=== PATIENT | male | born 1945 | race Caucasian/White ===

== ENCOUNTER → 2017-03-02 | Outpatient (CLI) | payer OTHER ==
[~2017-03-02] MED LIST: IOPAMIDOL (ISOVUE-300) 100 ML BTL ONE
[2017-03-02 14:10] LABS: GLOMERULAR FILTRATION RATE > 60
== END ==
LOC: FIMAGING 13:07
PROVIDERS: ATTEND Family Medicine
DX: J84.9 Interstitial pulmonary disease, unspecified (principal)
CPT/HCPCS: 74160; Q9967

== ENCOUNTER 2017-04-24 12:32 | Emergency (ER) | payer OTHER ==
[2017-04-24 12:49] VITALS: TEMP 98.4
--- NOTE | 2017-04-24 13:36 | EDPHY ---
HPI/HX/ROS/PE/MDM Narrative: CHIEF COMPLAINT: Pain in lower back HPI: This patient is a 71 year old male complaining of pain in his anus radiating down his left leg to his knee worsening since onset 5-6 days ago, last Monday. He rates his discomfort at 8 or 9/10 severity. He was able to take a Vicodin, but this did not significantly reduce his pain, and it remained around 7/10 severity. The pain is constant, but improves slightly with walking. He endorses lower back pain. He denies increased pain with bowel movements. In the spring, he had a pain in his abdomen, localized to his left upper quadrant. Abdominal CT was normal at that time. His pain remained undiagnosed and gradually resolved over 6-8 weeks. His discomfort today is different from that episode. He denies other recent illness or trauma. REVIEW OF SYSTEMS: Aside from elements discussed in the HPI, a comprehensive 10-point review of systems was reviewed and is negative. PMH: CVA (Plavix), sepsis SOCIAL HISTORY: at bedside. Denies drug abuse. PHYSICAL EXAM: General:Patient is alert, in no acute distress. ENT:Eyes are normal to inspection. ENT inspection normal. Neck: Normal inspection. Full range of motion. Respiratory:No respiratory distress. Breath sounds normal bilaterally. Cardiovascular: Regular rate and rhythm. Strong peripheral pulses. Normal cap refill. Abdomen:The abdomen is nontender to palpation. There are no peritoneal signs. There are normal bowel sounds. Back: Normal to inspection. No tenderness to palpation. Skin: Normal color. No rash. Warm and dry. Extremities: Tenderness to inner thigh is present. Normal inspection. Chronic muscle wasting of all extremities noted. No leg swelling. Neuro: Oriented x3. Chronic bilateral weakness noted. Portions of this note were transcribed by an ED scribe. I personally performed the history, physical exam, and medical decision making; and confirm the accuracy of the information in the transcribed note. ED Course: 71 year old male presenting with sacral and lower back pain radiating down his left leg. Plan for Istat, imaging studies including sacrum/coccyx/pelvis x-ray, ultrasound of lower left extremity. Plan to administer Percocet PO for symptom relief. X-rays show no discernible fractures. US negative for DVT. 17:[address] Lewis, radiologist. CT shows lumbar stenosis, consider MRI for further evaluation. 19:[address] Lewis, radiologist. MRI shows multi-level lumbar and sacral stenosis. Offered admission for continued management. Patient declines. Plan to discharge home in good condition. Recommended follow up with neurosurgery for further evaluation of spinal stenosis and lumbar radiculopathy. MDM: This patient presents with the somewhat unusual complaint of pain in his lower back, perianal area and inner left thigh. His exam is made somewhat difficult by chronic changes related to prior stroke. We performed an extensive workup here in the ED. US is negative for DVT, abscess or other significant finding. Of note, patient's was very upset that we were not performing an ultrasound of his carotids "since the machine is right here." I explained that in the ED we focus on the active problem, and that pain in his back and leg is not suggestive of an acute stroke. CT of his abdomen and L/S spine is negative for sacral fracture or mass, but suggests severe disc disease and spinal stenosis. This is confirmed by MRI as well, with worsening towards the left on the lower levels, which is compatible with his symptoms. I see no signs of leg or back trauma, DVT, abscess, bowel issue or active infection. I offered the patient a medrol dose-maggie but he and his refuse this. I offered admission for pain control and further workup including NSG eval, but they refuse. I strongly recommended close follow-up with NSG and PCP as an outpatient. - Data Points Imaging Results: Imaging Impressions Extremity Venous Study 04/24/17 13:45 Impression: No evidence of deep vein thrombosis. Findings discussed with Tashi Campbell MD 04/24/2017 at 15:32. Pelvis X-Ray 04/24/17 13:45 Impression: Negative. No discernible fracture. Sacrum and Coccyx X-Ray 04/24/17 14:23 Impression: Negative. No discernible sacral fracture.. Abdomen CT 04/24/17 16:12 Impression: 1. Constipation. 2. Sigmoid diverticulosis, without diverticulitis or bowel obstruction. 3. Atherosclerotic aorta, without aneurysm. Findings and recommendations discussed with Emergency Department physician, Tashi Campbell M.D., at 1730 hours, on April 24, 2017. Final report concurs with initial preliminary interpretation. Lumbar Spine CT 04/24/17 16:13 Impression: 1. L5-S1: Severe bilateral neural foraminal stenosis secondary to spondylolytic grade 1 spondylolisthesis. 2. No evidence of sacral fracture, sacral insufficiency fracture, or destructive osseous lesion. 3. L1-L2: Severe central canal stenosis secondary to severe bilateral facet arthropathy, degenerative disk disease, and disk bulge. 4. Moderate central canal stenosis at L2-L3, L3-L4, and L4-L5 secondary to degenerative disk disease, with disk bulge and bilateral facet arthropathy, also resulting in mild to moderate bilateral neural foraminal stenosis. 5. Consider MRI lumbar spine for further evaluation. Findings and recommendations discussed with Emergency Department physician, Tashi Campbell M.D., at 1730 hours, on April 24, 2017. Final report concurs with initial preliminary interpretation. Lumbar Spine MRI 04/24/17 17:53 Impression: 1. L5-S1: Severe left neural foraminal stenosis and moderate to severe right neural foraminal stenosis secondary to spondylolytic grade 1 spondylolisthesis. 2. L1-L2: Severe central canal stenosis secondary to severe bilateral facet arthropathy, moderate degenerative disk disease, with circumferential disk bulge and osteophytes, asymmetrically more prominent towards the left, also resulting in severe left neural foraminal stenosis. 3. Moderate central canal stenosis at L2-L3 and L3-L4 secondary to moderate degenerative disk disease, with circumferential disk bulge and osteophytes, asymmetrically more prominent towards the left, and moderate bilateral facet arthropathy, also resulting in moderate to severe bilateral neural foraminal stenosis, worse on the right at L3-L4. 4. Please see above findings at specific disk levels. Findings and recommendations discussed with Emergency Department physician, Tashi Cambpell M.D., at 1950 hours, on April 24, 2017. Final report concurs with initial preliminary interpretation. E:GI/amm Imaging: Discussed imaging studies w/ call or contact centre operator Radiologist Laboratory Results: 04/24/17 16:31 POC Hgb 15.3 gm/dL gm/dL (13.7-17.5) POC Hct 45 % % (40-51) POC Sodium 140 mEq/L mEq/L (134-144) POC Potassium 4.2 mEq/L mEq/L (3.3-5.0) POC Chloride 103 mEq/L mEq/L (97-110) POC BUN 35 mg/dL H mg/dL (7-23) POC Creatinine 1.0 mg/dL mg/dL (0.7-1.3) POC Glucose 121 mg/dL H mg/dL (70-100) Medications Given: Discontinued Medications Oxycodone/Acetaminophen (Percocet 5/325) 1 tab PO EDNOW ONE Stop: 04/24/17 14:11 Last Admin: 04/24/17 14:37 Dose: 1 tab Oxycodone/Acetaminophen (Percocet 5/325) 1 tab PO EDNOW ONE Stop: 04/24/17 20:12 Last Admin: 04/24/17 20:19 Dose: 1 tab Oxycodone/Acetaminophen (Percocet 5/325mg Prepack#4) 1 btl TAKEHOME EDNOW ONE Stop: 04/24/17 20:12 Last Admin: 04/24/17 20:19 Dose: 1 btl Point of Care Test Results: 04/24/17 16:31 POC Sodium 140 POC Potassium 4.2 POC Chloride 103 POC BUN 35 H POC Creatinine 1.0 POC Glucose 121 H General Time Seen by Provider: 04/24/17 13:32 Initial Vital Signs: Initial Vital Signs Temperature (C) 36.9 C 04/24/17 12:40 Heart Rate 73 04/24/17 12:40 Respiratory Rate 18 04/24/17 12:40 Blood Pressure 135/78 H 04/24/17 12:40 O2 Sat (%) 95 04/24/17 12:40 O2 Delivery Mode Room Air Allergies/Adverse Reactions: aspirin Allergy (Intermediate, Verified 04/24/17 12:47) Hives Home Medications: Medication Instructions Recorded AZOPT 1% 06/08/10 LUMIGAN 0.03% 06/08/10 POTASSIUM CHLORIDE 06/08/10 HYDROCHLOROTHIAZIDE 08/17/10 LISINOPRIL 08/17/10 oxyCODONE/APAP 5/325 [Percocet 1 - 2 tab PO Q4H PRN #15 tab 04/24/17 5/325 (*)] Departure - Departure Disposition: Home, Routine, Self-Care Clinical Impression: Lumbosacral radiculopathy Condition: Good Instructions: Lumbar Radiculopathy (ED) Additional Instructions: Follow up with a azure principal solution specialist within one week. Return to the emergency department for severe pain, fever, numbness, difficulty walking, change in location or nature of pain or other concerns. Use ibuprofen and Tylenol as directed. Try using a heating pad. Referrals: PAVITHRA CONNORS [Primary Care Provider] - As per Instructions Ernestine Zaidi MD [Medical Doctor] - As per Instructions Prescriptions: oxyCODONE/APAP 5/325 [Percocet 5/325 (*)] 1 - 2 tab PO Q4H PRN #15 tab PRN Reason: Pain, Severe Report Scribed for: Tashi Campbell Report Scribed by: Brittany Crockett Date of Report: 04/24/17 Time of Report: 13:35
[2017-04-24] MEDS ORDERED: OXYCODONE/APAP 5/325 TAB PO ONE ×2 (14:10→20:11)
[2017-04-24] MEDS ORDERED: IOPAMIDOL (ISOVUE-300) 100 ML BTL ONE (17:03)
[2017-04-24] MEDS ORDERED: OXYCODONE/APAP 5/325MG PREPACK#4 BTL TAKEHOME ONE (20:11)
[2017-04-24 20:29] VITALS: BP 133/77; PULSE 70; RESP 18; O2SAT 95
== END 2017-04-24 20:10 | disposition home or self-care (01) ==
DX: M54.17 Radiculopathy, lumbosacral region (principal); Z86.73 Personal history of transient ischemic attack (TIA), and cerebral infarction without residual deficits
CPT/HCPCS: 72132; 72148; 72170; 72220; 74177; 93971; 99285; Q9967; 82947-QW

== ENCOUNTER 2017-05-03 13:09 | Day surgery (SDC) | payer OTHER ==
[2017-05-03] MEDS ORDERED: MIDAZOLAM 2 MG/2 ML VIAL ONE (13:50)
[2017-05-03] MEDS ORDERED: fentaNYL 100 MCG/2 ML INJ ONE (13:51)
[2017-05-03] MEDS ORDERED: TRIAMCINOLONE ACETONIDE 200 MG/5 ML MDV IM ONE (14:33)
[2017-05-03] MEDS ORDERED: IOPAMIDOL (ISOVUE-M 300) 15 ML VIAL ONE (14:34)
[2017-05-03 15:58] VITALS: RESP 12
[2017-05-03 16:12] VITALS: BP 135/78; O2SAT 96
== END 2017-05-03 16:35 | disposition home or self-care (01) ==
LOC: FIMAGING 13:09
PROVIDERS: ATTEND Radiology Diagnostic Radiology
PROC: 3E0S3BZ Introduction of Anesthetic Agent into Epidural Space, Percutaneous Approach (ICD-10-PCS; principal; 2017-05-03 15:16)
PROC: 3E0S33Z Introduction of Anti-inflammatory into Epidural Space, Percutaneous Approach (ICD-10-PCS; principal; 2017-05-03 15:16)
DX: M54.16 Radiculopathy, lumbar region (principal); Z96.642 Presence of left artificial hip joint; Z98.1 Arthrodesis status; Z86.73 Personal history of transient ischemic attack (TIA), and cerebral infarction without residual deficits
CPT/HCPCS: J2250; J3010; J3301; Q9967

== ENCOUNTER → 2017-10-13 | Outpatient (CLI) | payer OTHER ==
[~2017-10-13] MED LIST changes: +IOPAMIDOL (ISOVUE 370) 100 ML BTL IV ONE; -IOPAMIDOL (ISOVUE-300) 100 ML BTL ONE
== END ==
LOC: FIMAGING 14:00
PROVIDERS: ATTEND Podiatrist Primary Podiatric Medicine
DX: I70.213 Atherosclerosis of native arteries of extremities with intermittent claudication, bilateral legs (principal); M62.562 Muscle wasting and atrophy, not elsewhere classified, left lower leg; M62.561 Muscle wasting and atrophy, not elsewhere classified, right lower leg
CPT/HCPCS: 73706; Q9967

== ENCOUNTER 2018-01-25 18:32 | Emergency (ER) | payer OTHER ==
[2018-01-25 18:42] VITALS: BP 162/98
[2018-01-25] MEDS ORDERED: APIXABAN 5 MG TAB PO ONE (19:01)
--- NOTE | 2018-01-25 19:16 | EDPHY ---
H & P Stated Complaint: L leg DVT Time Seen by Provider: 01/25/18 18:41 - Personal History Current Tetanus/Diphtheria Vaccine: Yes Current Tetanus Diphtheria and Acellular Pertussis (TDAP): Yes - Medical/Surgical History Hx Asthma: No Hx Chronic Respiratory Disease: No Hx Diabetes: No Hx Cardiac Disease: No Hx Renal Disease: No Hx Cirrhosis: No Hx Alcoholism: No Hx HIV/AIDS: No Hx Splenectomy or Spleen Trauma: No Other PMH: CVA. sepsis. L hip replacement, cervical spine fusion, carotid endardectomy - Social History Smoking Status: Never smoked Constitutional: Initial Vital Signs Temperature (C) 37.1 C 01/25/18 18:38 Heart Rate 79 01/25/18 18:38 Respiratory Rate 16 01/25/18 18:38 Blood Pressure 162/98 H 01/25/18 18:38 O2 Sat (%) 96 01/25/18 18:38 O2 Delivery Mode Room Air Allergies/Adverse Reactions: aspirin Allergy (Intermediate, Verified 01/25/18 18:36) Hives esomeprazole [From Nexium] Allergy (Verified 01/25/18 18:36) Home Medications: Medication Instructions Recorded AZOPT 1% 06/08/10 LUMIGAN 0.03% 06/08/10 POTASSIUM CHLORIDE 06/08/10 HYDROCHLOROTHIAZIDE mg PO DAILY 08/17/10 LISINOPRIL mg PO DAILY 08/17/10 Celexa mg PO DAILY 04/28/17 Lipitor mg PO DAILY 04/28/17 Methotrexate 04/28/17 Pamelor mg PO DAILY 04/28/17 Apixaban [Eliquis] 5 mg PO BID #160 tab 01/25/18 Apixaban [Eliquis] 10 mg PO BID #14 tab 01/25/18 Plavix 01/25/18 Medical Decision Making - Diagnostics Imaging Results: Imaging Impressions Extremity Venous Study 01/25/18 16:45 Impression: Calf DVT in one of the paired posterior tibial veins. Findings and recommendations discussed with Pavithra Connors M.D., at 1824 hours, on January 25, 2018. Final report concurs with initial preliminary interpretation. ED Course/Re-evaluation: CHIEF COMPLAINT: Left leg DVT HISTORY OF PRESENT ILLNESS: Very pleasant 72-year-old gentleman with a new diagnosis of a left leg DVT. He has a musculoskeletal disorder which causes significant muscular atrophy he wears braces on his legs any somewhat immobile. His primary physician Dr. Yvon Connors called and we reviewed his treatment plan before the patient got here. He was sent in for an outpatient ultrasound and Dr. Connors called me. Despite the fact that this is a below the knee clot this patient is a significant clot risk and Dr. Connors and I decided to treat him with Eliquis. Patient denies any breathing problems. Patient denies any elevated heart rate. Patient feels absolutely normal. Patient has never had a clot before. Patient has no contraindications to Eliquis. REVIEW OF SYSTEMS: A 10 point review of systems was performed and is negative with the exception of the elements mentioned in the history of present illness. PHYSICAL EXAM: HR, BP, O2 Sat, RR. Temp noted General Appearance: Alert, well hydrated, appropriate, and non-toxic appearing. Head: Atraumatic without scalp tenderness or obvious injury Eyes: Pupils equal, round, reactive to light and accommodation, EOMI, no trauma , no injection. Ears: Clear bilaterally, no perforation, normal landmarks Nose: Atraumatic, no rhinorrhea, clear. Throat: There is no erythema or exudates, no lesions, normal tonsils, mucus membranes moist. Neck: Supple, 2+ carotid upstroke, nontender, no lymphadenopathy. Respiratory: No retractions, no distress, no wheezes, and no accessory muscle use. Lungs are clear to auscultation bilaterally. Cardiovascular: Regular rate and rhythm, no murmurs, rubs, or gallops. Bilateral carotid, radial, dorsalis pedis, and posterior tibial pulses intact. Good capillary refill all extremities. Gastrointestinal: Abdomen is soft, nontender, non-distended, no masses, no rebound, no guarding, no peritoneal signs. Musculoskeletal: Significant body wide atrophy, chronic, otherwise, Normal active ROM of all extremities, atraumatic. Neurological: Alert, appropriate, and interactive. The patient has normal DTRs and non-focal cranial nerves, motor, sensory, and cerebellar exam. Skin: No rashes, good turgor, no nodules on palpation. Past medical history: Musculoskeletal disorder Past surgical history: Noncontributory and not recent Family history: Noncontributory Social history: , retired, does not abuse tobacco drugs or alcohol DIAGNOSTICS/PROCEDURES/CRITICAL CARE TIME: Study: Ultrasound of the: Left leg rule out DVT Indication: Left leg swelling immobility Results: US scan of the left leg was obtained. The results of the study are left leg DVT. The study was read by the radiologist, Dr. Yariel Hodge. I viewed the images myself on the PACS system. DIFFERENTIAL DIAGNOSIS: The differential diagnosis for the patient's leg swelling included but was not limited to hypoalbuminemia, congestive heart failure, cor pulmonale, venous stasis, trauma, and DVT. MEDICAL DECISION MAKING: This patient has a below knee small blood clot in his left leg. However, he is in mobile and his muscles are quite atrophied and he is certainly at risk for additional clotting. I had a long discussion with his primary care physician and we have agreed that Eliquis would be the best choice for this patient. I have given 10 mg here I have written a prescription for 10 mg twice daily for the next week and then 5 mg twice daily for 90 days total. He will follow up with his primary doctor early next week. I have answered all questions from the patient and his . Departure - Departure Disposition: Home, Routine, Self-Care Clinical Impression: DVT of axillary vein, acute left Condition: Good Instructions: Deep Vein Thrombosis (ED) Referrals: PAVITHRA CONNORS [Primary Care Provider] - As per Instructions Prescriptions: Apixaban [Eliquis] 10 mg PO BID #14 tab Apixaban [Eliquis] 5 mg PO BID #160 tab
== END 2018-01-25 19:30 | disposition home or self-care (01) ==
DX: I82.A12 Acute embolism and thrombosis of left axillary vein (principal); Z86.73 Personal history of transient ischemic attack (TIA), and cerebral infarction without residual deficits

== ENCOUNTER 2018-04-10 12:13 | Day surgery (SDC) | payer OTHER ==
[2018-04-10] MEDS ORDERED: MEPERIDINE 25 MG/ML SYR IVP PRN (13:55)
[2018-04-10] MEDS ORDERED: NALOXONE HCL 0.4 MG/ML INJ IVP PRN (13:55)
[2018-04-10] MEDS ORDERED: FLUMAZENIL 0.5 MG/5 ML MDV IVP PRN (13:55)
[2018-04-10] MEDS ORDERED: MIDAZOLAM 2 MG/2 ML VIAL IVP PRN (13:55)
[2018-04-10] MEDS ORDERED: fentaNYL 100 MCG/2 ML INJ IVP PRN (13:55)
[2018-04-10] MEDS ORDERED: NS 1,000 ML IV SCH (14:00)
[2018-04-10] MEDS ORDERED: TRIAMCINOLONE ACETONIDE 200 MG/5 ML MDV IM ONE (15:02)
[2018-04-10] MEDS ORDERED: ACETAMINOPHEN 325 MG TAB PO PRN (15:32)
--- NOTE | 2018-04-10 15:32 | PDRADPRE ---
Radiology History & Physical Indication for procedure: back pain Home medications: AZOPT 1% 06/08/10 [Last Taken 04/10/18] LUMIGAN 0.03% 06/08/10 [Last Taken 04/09/18] POTASSIUM CHLORIDE 1 tab PO DAILY 06/08/10 [Last Taken 04/10/18] HYDROCHLOROTHIAZIDE 12.5 mg PO DAILY 08/17/10 [Last Taken 04/10/18] LISINOPRIL 12.5 mg PO DAILY 08/17/10 [Last Taken 04/10/18] Celexa 1 tab PO DAILY 04/28/17 [Last Taken 04/09/18] Lipitor 10 mg PO DAILY 04/28/17 [Last Taken 04/09/18] Methotrexate 25 mg PO DAILY 04/28/17 [Last Taken 04/10/18] Pamelor 25 mg PO DAILY 04/28/17 [Last Taken 04/09/18] Plavix 75 mg PO DAILY 01/25/18 [Last Taken 04/05/18] Allergies/Adverse Reactions: aspirin Allergy (Intermediate, Verified 04/06/18 11:10) Hives esomeprazole [From Nexium] Allergy (Verified 04/06/18 11:10) Hives Mental status: A&Ox3 Heart exam: regular rate and rhythm Mallampati Score: Class 4 (ASA 2)
--- NOTE | 2018-04-10 15:32 | PDRADPN ---
Radiology Procedure Note Date of Procedure: 04/10/18 Radiologist: Kenji Shelley Anesthesia: IV Sedation Pre-op Diagnosis: back pain Post-op Diagnosis: same Procedure: left L1-L2 TF SNRB Inf/Abcess present in the surg proc area at time of surgery?: No
[2018-04-10 16:07] VITALS: BP 135/79
== END 2018-04-10 16:42 | disposition home or self-care (01) ==
LOC: FIMAGING 12:13
PROVIDERS: ATTEND Physician Assistant
PROC: 3E0R3BZ Introduction of Anesthetic Agent into Spinal Canal, Percutaneous Approach (ICD-10-PCS; principal; 2018-04-10 15:39)
PROC: 3E0R33Z Introduction of Anti-inflammatory into Spinal Canal, Percutaneous Approach (ICD-10-PCS; principal; 2018-04-10 15:39)
DX: M54.16 Radiculopathy, lumbar region (principal)
CPT/HCPCS: J2250; J3010; J3301

== ENCOUNTER → 2018-08-03 | Outpatient (CLI) | payer OTHER ==
[~2018-08-03] MED LIST changes: +GADOBUTROL 10 ML VIAL IVP ONE; -IOPAMIDOL (ISOVUE 370) 100 ML BTL IV ONE
== END ==
LOC: FIMAGING 15:05
PROVIDERS: ATTEND Podiatrist Primary Podiatric Medicine
DX: L03.115 Cellulitis of right lower limb (principal); M76.61 Achilles tendinitis, right leg; M19.071 Primary osteoarthritis, right ankle and foot
CPT/HCPCS: 73723; A9585; 82565-PO

== ENCOUNTER → 2018-10-01 | Outpatient (CLI) | payer OTHER | LOC: FIMAGING 15:29 | PROVIDERS: ATTEND Podiatrist Primary Podiatric Medicine | DX: L97.319 Non-pressure chronic ulcer of right ankle with unspecified severity (principal) ==

== ENCOUNTER 2018-10-25 10:06 | Day surgery (SDC) | payer OTHER ==
--- NOTE | 2018-10-25 09:10 | PDHPUP ---
History & Physical Update H&P update statement: This history and physical update is based on an assessment of the patient which was completed after admission or registration (within 24 hours), but prior to the surgery/procedure. H&P update: H&P reviewed & patient examined, no change in patient's condition since H&P completed
[2018-10-25] MEDS ORDERED: ceFAZolin 2 GM/DEXTROSE 100 ML IV ONE (10:18)
[2018-10-25] MEDS ORDERED: LR 1,000 ML IV ONE (10:21)
[2018-10-25] MEDS ORDERED: LIDOCAINE 1% 2 ML INJ ID PRN (10:21)
[2018-10-25] MEDS ORDERED: EPINEPHrine 1 MG/ML INJ ONE (10:27)
[2018-10-25] MEDS ORDERED: BUPIVACAINE 0.25% 30 ML SDV ONE (10:27)
[2018-10-25] MEDS ORDERED: BACITRACIN 50,000 UNITS/10 ML SYR IRR ONE (10:27)
[2018-10-25] MEDS ORDERED: MIDAZOLAM 2 MG/2 ML VIAL ONE (11:14)
[2018-10-25] MEDS ORDERED: MIDAZOLAM 2 MG/2 ML VIAL IVP ONE (11:14)
--- NOTE | 2018-10-25 11:14 | PDANEPAE ---
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 glaucoma - Chronic Pain History Chronic Pain: Yes (left side weaker and more sensitve) - Surgical History Prior Surgeries: L hip replacement 2008, cervical fusion C5-6 2002, knee surgery , ankle surgery, 2009 left caritod plaque removed ANE Review of Systems Review of Systems: - Exercise capacity METS (RN): 2 METS ANE Patient History - Allergies Allergies/Adverse Reactions: aspirin Allergy (Intermediate, Verified 10/25/18 10:41) Hives esomeprazole [From Nexium] Allergy (Verified 10/25/18 10:41) Hives - Home Medications Home Medications: AZOPT 1% 06/08/10 [Last Taken 04/10/18] LUMIGAN 0.03% 06/08/10 [Last Taken 04/09/18] POTASSIUM CHLORIDE 06/08/10 [Last Taken 04/10/18] HYDROCHLOROTHIAZIDE 08/17/10 [Last Taken 04/10/18] LISINOPRIL 08/17/10 [Last Taken 04/10/18] Celexa 04/28/17 [Last Taken 04/09/18] Lipitor 04/28/17 [Last Taken 04/09/18] Methotrexate 04/28/17 [Last Taken 04/10/18] Pamelor 04/28/17 [Last Taken 04/09/18] Plavix 01/25/18 [Last Taken 04/05/18] - Smoking Hx Smoking Status: Never smoked - Family Anes Hx Family Hx Anesthesia Complications: None ANE Labs/Vital Signs - Vital Signs Height: 161.29 cm Weight: 70.307 kg ANE Physical Exam - Airway Neck exam: decreased ROM Mallampati Score: Class 2 Mouth exam: small mouth opening - Pulmonary Pulmonary: no respiratory distress - Cardiovascular Cardiovascular: regular rate and rhythym - ASA Status ASA Status: III ANE Anesthesia Plan Anesthesia Plan: GA with mask, MAC
[2018-10-25] MEDS ORDERED: LIDOCAINE 2% 5 ML SDV ONE (11:34)
[2018-10-25] MEDS ORDERED: fentaNYL 100 MCG/2 ML INJ ONE (11:34)
[2018-10-25] MEDS ORDERED: PROPOFOL 200 MG/20 ML VIAL ONE (11:34)
[2018-10-25] MEDS ORDERED: PHENYLEPHRINE HCL 100 MCG/ML SYR ONE (12:10)
--- NOTE | 2018-10-25 12:15 | POSTOPPROG ---
Post Op Note Date of Operation: 10/25/18 Surgeon: Sudhir Gunter Botany Laboratory Assistant: none Anesthesiologist: Kirstie Anesthesia: IV Sedation Pre-op Diagnosis: right ankle ucler Post-op Diagnosis: same Indication: ulcer of greater than 1 year duration Procedure: debridement with Apligraph Findings: none Inf/Abcess present in the surg proc area at time of surgery?: No Depth: Superfical (Skin SQ) EBL: Minimal Total fluids administered: 20cc .25% marcaine plain Complications: none Drains: Other (none)
[2018-10-25] MEDS ORDERED: oxyCODONE IR 5 MG TAB PO PRN (12:19)
[2018-10-25] MEDS ORDERED: NALOXONE HCL 0.4 MG/ML INJ IVP PRN (12:19)
[2018-10-25] MEDS ORDERED: ONDANSETRON 4 MG/2 ML VIAL IVP PRN (12:19)
[2018-10-25] MEDS ORDERED: fentaNYL 100 MCG/2 ML INJ IVP PRN (12:19)
--- NOTE | 2018-10-25 12:21 | POSTANESTH ---
Post Anesthetic Evaluation Cardiovascular Status: Normal, Stable Respiratory Status: Normal, Stable Level of Consciousness/Mental Status: Mildly Sleepy, Arousable Pain Control: Adequate, Prn Tx Ordered Nausea/Vomiting Control: Adequate, Prn Tx Ordered Complications Possibly Related to Anesthesia: None Noted
[2018-10-25 15:28] VITALS: BP 119/59
--- NOTE | 2018-10-25 17:23 | GOP ---
DATE OF OPERATION: 10/25/2018 SURGEON: Sudhir Gunter DPM WINDOWS SECURITY ANALYST: None. ANESTHESIA: Local with MAC. ANESTHESIOLOGIST: Ronnell Thacker MD. PREOPERATIVE DIAGNOSIS: Ulceration, lateral right ankle. POSTOPERATIVE DIAGNOSIS: Ulceration, lateral right ankle. PROCEDURE PERFORMED: 1. Extensive debridement ulceration right lateral ankle with Versajet. 2. Apligraf application right ankle. FINDINGS: SPECIMENS: Pathology: Soft tissue specimen sent for culture and sensitivity. ESTIMATED BLOOD LOSS: Minimal. DESCRIPTION OF PROCEDURE: The patient presented to [facility] and was cleared for the intended procedure. Patient was taken to the operating room and placed on the table in supine positi on. IV sedation was started per the anesthesia department. Foot was anesthetized in an infiltrative nerve block fashion. Foot was prepped, scrubbed and draped in the usual sterile fashion. At this t papito, attention was directed to the lateral aspect of the right ankle where the obvious ulceration was identified. It continues to be approximately 15 mm in diameter with a more central deeper core that probes close to bone. At this time, some of the fiber necrotic tissue in the wound base was debride d and sent in for culture and sensitivity. Following this, the Versajet was then utilized to thoroug hly debride the ulceration back to healthy bleeding tissue. The area was flushed with copious amount s of sterile saline and antibiotic rinse before the Apligraf was prepared appropriately and placed ov er the site in a sterile fashion. The Apligraf was held in place utilizing Steri-Strips. A nonadher ent dressing was then placed over the site. The patient was taken to the recovery room, vital signs stable, vascular supply intact digits 1 through 5 bilaterally. HEMOSTASIS: None. MATERIALS: Apligraf. INJECTABLES: 20 cc 0.25% Marcaine plain preoperatively. COMPLICATIONS: None. /[id number]/MODL
--- NOTE | 2018-10-25 17:47 | CPEKG ---
Test Reason : OPEN Blood Pressure : / mmHG Vent. Rate : 077 BPM Atrial Rate : 077 BPM P-R Int : 077 ms QRS Dur : 088 ms QT Int : 415 ms P-R-T Axes : 109 056 011 degrees QTc Int : 470 ms Sinus rhythm Short ID interval Confirmed by Katie Ellison ([id number]) on 10/25/2018 5:46:40 PM Referred By: BECCA AMOR Confirmed By:Katie Ellison
== END 2018-10-25 15:10 | disposition home or self-care (01) ==
LOC: FSGY 10:06
PROVIDERS: ATTEND Podiatrist Primary Podiatric Medicine
PROC: 0JDN0ZZ Extraction of Right Lower Leg Subcutaneous Tissue and Fascia, Open Approach (ICD-10-PCS; principal; 2018-10-25 11:45)
PROC: 0JU Subcutaneous Tissue and Fascia, Supplement (ICD-10-PCS; principal; 2018-10-25 11:45)
DX: L97.312 Non-pressure chronic ulcer of right ankle with fat layer exposed (principal); I10 Essential (primary) hypertension; Z86.73 Personal history of transient ischemic attack (TIA), and cerebral infarction without residual deficits; Q68.8 Other specified congenital musculoskeletal deformities
CPT/HCPCS: J0171; J0690; J2250; J2370; J2704; J3010; Q4101

== ENCOUNTER → 2018-12-21 | Outpatient (CLI) | payer OTHER | LOC: FIMAGING 11:52 | PROVIDERS: ATTEND Podiatrist Primary Podiatric Medicine | DX: L97.411 Non-pressure chronic ulcer of right heel and midfoot limited to breakdown of skin (principal); L97.421 Non-pressure chronic ulcer of left heel and midfoot limited to breakdown of skin; I87.2 Venous insufficiency (chronic) (peripheral) ==

== ENCOUNTER 2019-03-15 16:58 | Inpatient (IN) | payer OTHER | END 2019-03-17 13:57 | disposition home or self-care (01) | LOC: F3E 20:45 ==